=== PATIENT | female | born 1995 | race Caucasian/White ===

== ENCOUNTER 2017-08-18 21:23 | Inpatient (IN) ==
[~2017-08-18 21:23] MED LIST: Famotidine 20 MG/2 ML VIAL IVP PRN; Naloxone 0.4 MG/ML INJ IVP PRN; Ondansetron 4 MG/2 ML VIAL IVP PRN; Ringers Solution, Lactated 1,000 ML IVC SCH
--- NOTE | 2017-08-18 21:27 | OB/GYN History & Physical ---
Date of Encounter: 08/19/17 Time of Encounter: 20:55 Assessment and Plan (1) Oral thrush Current visit: Yes Status: Acute Patient shows white pseudomembranous plaques on examination. - Will treat with nystatin after delivery. (2) 39 weeks gestation of Current visit: Yes Status: Acute Speculum exam was positive for vaginal pooling. Nitrazine test was positive. - Patient will be admitted for labor and delivery. History of Present Illness Chief complaint: ROM HPI: Ms. So is a 22 year old female that is 39 6/7 gestation that presents for ROM. Patient says that she noticed vaginal fluid leaking around 6 pm today. She denies any vaginal bleeding. She admits to good movement. She says she has been having contractions since 6 pm that are 20-30 min. apart. She denies JARVIS, vision changes, chest pain, nausea, vomiting, fever, dysuria, and diarrhea. GBS: negative T. Pallidum: negative HepBSAB: Non-reactive HIV Ag/Ab: non-reactive Rubella Ab: positive VZV Ab: positive Past Med Surg Social Fam HX - Past Medical History Medical history: no medical history Psychiatric history: no psych history - Past Surgical History Surgical History: no surgical history - Social History Smoking Status: Never smoker Smokeless Tobacco Status: No Alcohol use: none Drug use: marijuana - Family History Mother Living Status: Still Living Hx Family Cardiac Disorders: No Hx Family Respiratory Disorders: No Hx Family Cancer: No Hx Family GI Disorders: No Hx Family Genitourinary Disorders: No Hx Family Endocrine Disorder: No Hx Family Musculoskeletal Disorders: No Hx Family Neuromuscular Disorders: No Hx Family Neurologic Disorders: No Hx Family HEENT Disorders: No Hx Family Autoimmune Disorders: No Hx Family Reproductive Disorders: No Hx Family Psychosocial Disorders: Yes (multiple including bipolar) Hx Family Medical Disorders: Yes (ovarian cysts) Obstetrical History - Pregnancies : 2 Para: 0 Term: 0 : 0 Ab's: 1 Livin Medications and Allergies Ferrous Sulfate [Iron] 325 mg PO DAILY 08/18/17 [History] 3 Allergy/AdvReac Type Severity Reaction Status Date / Time No Known Allergies Allergy Verified 08/18/17 21:05 Exam - Vital Signs Vital signs: BP: 132/63 Pulse: 66 - Constitutional Constitutional: well developed, well nourished, no acute distress, average body habitus - HEENT HEENT: Mucus Membranes Moist, Other (White plaques present on tongue. ) - Lungs Respiratory exam: CTAB - Cardiovascular Cardiovascular exam: RRR, +S1, +S2 - Abdomen Abdomen: Present: bowel sounds normal, gravid, non tender - Extremities Extremities exam: normal capillary refill, normal inspection, radial pulses palpable and symmetrical Deep Tendon Reflex Grade: 2+ Normal - Vagina Vagina: Present: discharge - Cervix Cervix: Present: discharge Dilation: 1 Effacement: 80 Station: -2 Results Result Diagrams: 08/18/17 22:00 All other labs normal. - VTE Reasons for not Prescribing Prophylaxis: Treatment not Indicated - Low risk for VTE - Attending Attestation I examined this patient and my medical decision-making was reviewed with the Resident Physician. I agree with the documented findings, disposition and treatment plan as described except to the extent set forth below.
[2017-08-18 22:17] LABS: Basophils % 0.3 %; Eosinophils # 0.1 K/mcL (0.0-0.6); Eosinophils % 0.4 %; Hematocrit 35.7 % (35.3-44.9); Hemoglobin 12.2 g/dL (11.5-15.4); Immature Granulocytes % 0.6 % (0-4); Lymphocytes # 3.3 K/mcL (0.6-4.6); Lymphocytes % 23.3 %; Mean Corpuscular HGB Conc 34.2 g/dL (31.6-35.5); Mean Corpuscular Hemoglobin 31.1 pg (28.0-33.3); Mean Corpuscular Volume 91.1 fL (83.0-100.0); Mean Platelet Volume 10.6 fL (9.4-12.4); Monocytes # 1.3 K/mcL (0.0-1.3); Monocytes % 9.1 %; Neutrophils # 9.3 K/mcL (1.6-8.9); Platelet Count 263 K/mcL (140-400); Red Blood Count 3.92 M/mcL (3.82-4.97); Red Cell Distribution Width 12.2 % (11.5-14.5); Segmented Neutrophils % 66.3 %
[2017-08-18 22:40] LABS: Amphetamine Screen,Urine Negative ng/mL (Cutoff=1000); Barbiturate Screen,Urine Negative ng/mL (Cutoff=200); Benzodiazepines Screen,Urine Negative ng/mL (Cutoff=200); Cannabinoid Screen,Urine Positive ng/mL (Cutoff = 50); Cocaine Screen,Urine Negative ng/mL (Cutoff= 300); Opiate Screen,Urine Negative ng/mL (Cutoff=300); Phencyclidine Screen,Urine Negative ng/mL (Cutoff=25)
[2017-08-19] MEDS ORDERED: *HR* Nalbuphine 20 MG/ML AMPUL ONE (00:09)
--- NOTE | 2017-08-19 00:12 | OB Labor Progress Note ---
Date of Encounter: 08/19/17 Time of Encounter: 00:09 Labor Progress Note - Subjective Subjective: Patient reports pain / and requesting pain medication - Cervix Cervix: 2/90/-2 - Heart Tones Heart Tones: 115 bpm moderate variability +15x15 accels variable noted. - [place]: 2-3 min apart - Interventions Interventions: SVE, forebag ruptured - Plan Plan: Continue labor management Will give nubain for pain at this time
[2017-08-19] MEDS: *HR* Nalbuphine 20 MG/ML AMPUL IVP PRN ×2 (00:15→06:08)
[2017-08-19] MEDS ORDERED: Oxytocin 20 units/ LR 1000 mL 20 UNIT/1,000 ML BAG IVC SCH ×3 (02:00→17:11)
--- NOTE | 2017-08-19 06:34 | OB Labor Progress Note ---
Date of Encounter: 08/19/17 Time of Encounter: 06:32 Labor Progress Note - Subjective Subjective: Patient resting in bed. Patient had Nubain for pain. - Cervix Cervix: 2/90/-2 - Heart Tones Heart Tones: 115 bpm moderate variability - [place]: irregular - Interventions Interventions: SVE, IUPC placed. Patient tolerated well. - Plan Plan: Continue labor management. Pitocin restarted.
--- NOTE | 2017-08-19 07:38 | Anesthesia Evaluation PreOp ---
Date of Encounter: 08/19/17 Time of Encounter: 07:33 - Past History Planned Operation: vaginal del, Cardiac History: Denies any Significant Hx Pulmonary History: Denies Any Significant HX CURAM DEVELOPER History: Denies Any Significant HX Other Medical History: Denies Any Significant HX Anesthesia History: No Prior Anesthetic Complications, Past Anesthesia : Yes (term) Alcohol Use: none Drug use: marijuana Medications and Allergies Ferrous Sulfate [Iron] 325 mg PO DAILY 08/18/17 [History] 3 Allergy/AdvReac Type Severity Reaction Status Date / Time No Known Allergies Allergy Verified 08/18/17 21:05 Anesthesia Results - Labs 08/18/17 22:00 Anesthesia Exam - HEENT Pupil (Motor): Pupils equal Mallampati: II Teeth: Normal Oral Opening: Greater than 3 - CURAM DEVELOPER LOC: Oriented CURAM DEVELOPER Motor: Normal RUE, Normal LUE, Normal RLE, Normal LLE, Normal Face CURAM DEVELOPER Sensory: Normal: RUE, LUE, RLE, LLE, Face - Cardiac Rhythm: Regular Murmur: None - Pulmonary Breath Sounds: bilateral Clear Respiratory Effort: Symmetrical Anesthesia Assess/Plan ASA Score: 2 Modified Marion Scale for Level of Consciousness: Cooperative, oriented, and tranquil Anesthetic Plan: General, Regional Monitoring Plan: Standard Monitors Recovery Plan: PACU
[2017-08-19] MEDS ORDERED: Epidural Premix (fent/bupiv) 110 ML EP ONE (08:56)
--- NOTE | 2017-08-19 09:24 | Anesthesia Procedures ---
Date of Encounter: 08/19/17 Time of Encounter: 09:02 Procedures: Anesthesia - Nerve Block Procedure Date: 08/19/17 Time: 09:22 Surgical Procedure: vaginal del. Checklist: Correct Patient Identifier, Correct procedure, History checked
--- NOTE | 2017-08-19 09:25 | Anesthesia Procedures ---
Date of Encounter: 08/19/17 Time of Encounter: 09:02 Procedures: Anesthesia - Epidural/Spinal Patient ID/Chart reviewed: Yes Patient examined: Yes OB Eval: Gestational age: term OB Eval: : 1 OB Eval: Dilated at (cm): 4 OB Eval: Contractions: Non-stressed pattern Consent Obtained: Yes Supplemental Oxygen: None/Room Air Site Prep: Aseptic Technique, Sterile prep and drape, 0.5% Chlorhexidine/Alcohol Patient position: upright Local Anesthetic: Lidocaine 1% Amount of Local Anesthetic used: 2 Touhy Needle Gauge: 18 Touhy Needle Depth (cm): 6 Catheter Depth at Skin (cm): 10 Test Dose (1.5% Lido + Epi): Volume given (mls): 3 Test Dose Result: Negative Loading Dose: Other: 12 from solution Loading Dose Administered: Thru Catheter Infusion Med: 0.125% Bupivacaine w/ 2 mcg/ml Fentanyl Infusion Rate (mls/hr): [address]: Tegaderm, Tape Interspace Used: L4-L5 Loss of Resistance (MACK): Yes (saline) Blood: No CSF: No Paresthesia: No Procedure: vss though out, FHR stable per RN;s
--- NOTE | 2017-08-19 11:14 | OB Labor Progress Note ---
Date of Encounter: 08/19/17 Time of Encounter: 11:12 Labor Progress Note - Subjective Subjective: Pt resting in bed, comfortable with epidural - Cervix Cervix: 2 per RN - Heart Tones Heart Tones: 135/moderate/-accels/variable decels CAT II - [place]ickam Housing [place]am Housing: IUPC 2-3 - Interventions Interventions: Repositioned to left side due to increase in variable decelerations on right side - Plan Plan: Continue pitocin per policy Discussed pt may need to have c/s if decelerations increase or heart rate does not return to baseline continue to attempt to have
[2017-08-19] MEDS ORDERED: 0.9 % Sodium Chloride 1,000 ML ONE (11:54)
[2017-08-19] MEDS ORDERED: Gentamicin 110 MG in 0.9 % Sodium Chloride 100 ML IVPB ONE (12:15)
[2017-08-19] MEDS ORDERED: Terbutaline 1 MG/ML VIAL SQ ONE ×2 (12:56)
[2017-08-19] MEDS ORDERED: Metoclopramide 10 MG/2 ML VIAL IVP ONE (12:57)
[2017-08-19] MEDS ORDERED: Lidocaine/EPI 1:200k 2% PF 20 ML VIAL ONE (13:01)
[2017-08-19] MEDS ORDERED: CeFAZolin Pre 2,000 MG/100 ML 2,000 MG/100 ML BAG IVPB ONE (13:14)
[2017-08-19] MEDS ORDERED: *HR* Morphine Sulfate/PF 5 MG/10 ML AMPUL ONE (13:24)
[2017-08-19] MEDS ORDERED: *HR* Phenylephrine 10 MG/ML VIAL ONE (13:25)
[2017-08-19] MEDS ORDERED: Ringers Solution, Lactated 1,000 ML ONE (13:26)
[2017-08-19] MEDS ORDERED: Ondansetron 4 MG/2 ML VIAL ONE (14:05)
[2017-08-19] MEDS ORDERED: *HR* Oxytocin 10 UNIT/ML VIAL IM ONE (14:09)
[2017-08-19] MEDS ORDERED: *HR* FentaNYL (PF) 100 MCG/2 ML VIAL ONE (14:18)
[2017-08-19] MEDS ORDERED: *HR* HYDROmorphone (PF) 1 MG/ML SYRINGE IVP PRN ×2 (14:33→17:42)
[2017-08-19] MEDS ORDERED: *HR* Promethazine 25 MG/ML VIAL IVP PRN (14:33)
[2017-08-19] MEDS ORDERED: Rho Immune Globulin 1,500 UNIT SYRINGE IM PRN (14:59)
[2017-08-19] MEDS ORDERED: Metoclopramide 10 MG/2 ML VIAL IVP PRN ×2 (14:59→17:11)
[2017-08-19] MEDS ORDERED: Sennosides 8.6 MG TABLET PO PRN ×2 (14:59→17:11)
[2017-08-19] MEDS ORDERED: *HR* OxyCODONE/APAP 5/325 TABLET PO PRN (14:59)
[2017-08-19] MEDS ORDERED: Acetaminophen 325 MG TABLET PO PRN ×2 (14:59→17:11)
[2017-08-19] MEDS ORDERED: Simethicone 80 MG TAB.CHEW PO PRN ×2 (14:59→17:11)
[2017-08-19] MEDS ORDERED: Ibuprofen 600 MG TABLET PO PRN (14:59)
--- NOTE | 2017-08-19 15:02 | OB/GYN Procedure Note ---
Section - Date of procedure: 08/19/17 Preop diagnosis: category 2 FHT tracing (Relative CPD) Post-op diagnosis: same (nuchal cord 2 tight) Procedure: primary low transverse Surgeon: Torsten Dalal Estimated blood loss (cc): 500 Teletypesetter Operator: Xena Steele Anesthesiologist: Valerie Rocha Acrobatic Dancer: Alejandro Carrillo Anesthesia Type: Epidural section complications: none Disposition: PACU Specimens: Placenta - (s) A Delivery Date: 08/19/17 Delivery Time: 14:06 Presentation: vertex Position: OP Gender: Female Viability: Viable (l) Pounds: 6 Ounces: 12 Gram Weight: 3.065 kg at 1 minute: 9 at 5 minutes: 10 Shoulder Dystocia: not encountered Placenta: complete extraction Cord: nuchal reduced (tight x 2) - Narrative Narrative: Patient was taken to the operating room. She was placed in supine position prepped and draped in usual manner. After satisfactory epidural anesthesia was achieved, appropriate timeout is obtained. The abdomen was entered through standard Maylard incision. The Elijah retractor was placed. Peritoneum overlying the lower uterine segment was incised in a U-shaped fashion. The uterine cavity was entered sharply extended laterally. Fluid was clear. With fundal pressure the head was delivered. Nuchal cord 2 that was tight was relieved. The infant was suctioned upon delivery of the head. The remainder of the infant was delivered, umbilical cord double clamped and cut, and infant handed to nursery staff for further evaluation. The placenta was removed as its pathology for analysis. Uterus was closed with a 0 Monocryl in a single layer. After assurance of hemostasis, the peritoneum was reapproximated with a 2-0 Vicryl. The retractor was removed. The abdomen was closed in a fashion using 0 Vicryl in the fascia and 3-0 Monocryl in the skin. Angelica dressing was applied. Patient did well and was taken to recovery room in satisfactory condition. Counts were correct.
[2017-08-19] MEDS ORDERED: Rho Immune Globulin 1,500 UNIT SYRINGE IM ONE (17:11)
[2017-08-19] MEDS ORDERED: Naloxone 0.4 MG/ML INJ IVP PRN (17:11)
[2017-08-19] MEDS ORDERED: Ondansetron 4 MG/2 ML VIAL IVP PRN (17:11)
[2017-08-19] MEDS ORDERED: *HR* HYDROmorphone (PF) 1 MG/ML SYRINGE ONE (17:36)
--- NOTE | 2017-08-19 17:41 | Anesthesia Evaluation Post Op ---
Date of Encounter: 08/19/17 Time of Encounter: 17:38 - Vital Signs Vital Signs: vss - Lungs Lungs: Clear Ascult./Percussion - Airway Airway: Non-obstructed - Cardiovascular Baseline Rhythm - Mental Status Mental Status: Asleep with brisk response to light stimulation - Pain Pain Scale used: Luther (Faces) (going to medicate with 1mg dilaudid IV) - Nausea Vomiting Nausea Vomiting: Not Present - Hydration Hydration: Ice chips - Discharge PostOp Status: Transfer Patient to floor
[2017-08-19] MEDS ORDERED: *HR* Morphine 2 MG/ML SYRINGE IVP PRN (17:42)
[2017-08-19] MEDS ORDERED: Ampicillin 2 GM in 0.9 % Sodium Chloride Mini Bag 100 ML IVPB SCH (18:00)
[2017-08-19] MEDS: Ibuprofen 600 MG TABLET PO PRN (20:23)
[2017-08-19] MEDS ORDERED: Gentamicin 80 MG in 0.9 % Sodium Chloride 100 ML IVPB SCH (21:00)
[2017-08-20] MEDS: Ibuprofen 600 MG TABLET PO PRN ×2 (04:42→18:24)
[2017-08-20 06:03] LABS: Lymphocytes % 19.4 %; Mean Corpuscular Hemoglobin 31.7 pg (28.0-33.3)
[2017-08-20 06:13] LABS: Basophils % 0.2 %; Eosinophils % 0.1 %; Hematocrit 27.9 % (35.3-44.9); Hemoglobin 9.5 g/dL (11.5-15.4); Immature Granulocytes % 0.7 % (0-4); Immature Platelets 4.3 % (1.1-6.1); Lymphocytes # 2.9 K/mcL (0.6-4.6); Mean Corpuscular HGB Conc 34.1 g/dL (31.6-35.5); Mean Platelet Volume 10.3 fL (9.4-12.4); Monocytes # 1.1 K/mcL (0.0-1.3); Monocytes % 7.4 %; Neutrophils # 10.6 K/mcL (1.6-8.9); Platelet Count 189 K/mcL (140-400); Red Cell Distribution Width 12.4 % (11.5-14.5); Segmented Neutrophils % 72.2 %
[2017-08-20] MEDS ORDERED: Prenatal Vit/FA 1 EACH TABLET PO SCH (09:00)
--- NOTE | 2017-08-20 10:35 | OB/GYN Progress Note ---
Date of Encounter: 08/20/17 Time of Encounter: 10:33 - Assessment and Plan (1) Status post primary low transverse section Current Visit: Yes Status: Acute Patient doing well. She is tolerating her diet, ambulating and voiding. She has not passed gas. She has been encouraged to continue being up and active. (2) 39 weeks gestation of Current Visit: Yes Status: Resolved Delivered Subjective - Subjective Principal diagnosis: [id number] Patient reports: appetite normal, voiding normally, pain well controlled, ambulating normally [place]: doing well Objective - Vital Signs Latest vital signs: Vital Signs Temp Pulse Resp BP Pulse Ox 08/20/17 04:30 98.2 F 70 16 118/58 99 08/19/17 23:10 98.5 F 60 16 118/58 98 08/19/17 20:02 98.4 F 69 16 137/56 95 08/19/17 19:00 97.8 F 82 16 133/74 08/19/17 18:00 99.0 F 90 16 136/67 08/19/17 17:30 98.0 F 80 16 120/68 08/19/17 17:00 98.4 F 71 16 122/68 96 Intake and Output 08/19/17 08/20/17 08/20/17 23:59 07:59 15:59 Intake Total 1500 / 1500 200 / 200 Output Total 400 / 400 400 / 400 Balance 1100 / 1100 -200 / -200 Intake: Oral 500 / 500 200 / 200 Other 1000 / 1000 Output: Catheter 400 / 400 400 / 400 Other: Weight 64.3 kg - Exam Lungs: bilateral: normal Chest: Normal S1, Normal S2 Extremities: Present: normal, edema (mild). Absent: tenderness Abdomen: Present: normal appearance, soft. Absent: distention, tenderness Incision: Present: dry, intact, dressed (LAINEY) - Labs Labs: Laboratory Results - last 24 hr 08/19/17 08/20/17 15:12 05:46 WBC 14.7 H RBC 3.00 L Hgb 9.5 L D Hct 27.9 L MCV 93.0 MCH 31.7 MCHC 34.1 RDW 12.4 Plt Count 189 MPV 10.3 Immature Gran % 0.7 Seg Neutrophils % 72.2 Lymphocytes % 19.4 Monocytes % 7.4 Eosinophils % 0.1 Basophils % 0.2 Neutrophils # 10.6 H Lymphocytes # 2.9 Monocytes # 1.1 Eosinophils # 0.0 Basophils # 0.0 Immature Plt Fraction 4.3 Baby's Blood Type A RH NEGATIVE Mother's Blood Type A RH NEGATIVE Rhogam Indicated NO - Allied health notes Allied health notes reviewed: nursing
[2017-08-20] MEDS: *HR* OxyCODONE/APAP 5/325 TABLET PO PRN ×3 (10:40→20:58)
[2017-08-20] MEDS: Prenatal Vit/FA 1 EACH TABLET PO SCH (10:41)
[2017-08-20] MEDS ORDERED: Lanolin 7 G OINT...G. TP PRN (21:04)
[2017-08-21] MEDS: *HR* OxyCODONE/APAP 5/325 TABLET PO PRN ×2 (05:35→09:41)
--- NOTE | 2017-08-21 08:04 | Discharge Summary ---
Date of Encounter: 08/21/17 Time of Encounter: 07:50 - Discharge Diagnosis (1) 39 weeks gestation of Priority: Primary Status: Resolved (2) Oral thrush Priority: Primary Status: Acute (3) anemia Priority: Primary Status: Acute - Discharge Medications Prescriptions: Ibuprofen [Motrin] 600 mg PO Q6HR PRN #60 tablet PRN Reason: Cramping OxyCODONE/APAP 5/325 [Percocet 5/325 MG] 1 each PO Q6HR PRN #20 tablet PRN Reason: Moderate pain 4-6 Docusate [Colace] 100 mg PO BID #30 capsule Ferrous Sulfate 325 mg PO DAILY #30 tablet Nystatin [Nystatin Suspension] 100,000 units PO QID 10 Days #120 ml Vit/FA 1 each PO DAILY #30 tablet Home Medications: Docusate [Colace] 100 mg PO BID #30 capsule 08/21/17 [Rx] Ferrous Sulfate 325 mg PO DAILY #30 tablet 08/21/17 [Rx] Ibuprofen [Motrin] 600 mg PO Q6HR PRN #60 tablet 08/21/17 [Rx] Nystatin [Nystatin Suspension] 100,000 units PO QID 10 Days #120 ml 08/21/17 [Rx ] OxyCODONE/APAP 5/325 [Percocet 5/325 MG] 1 each PO Q6HR PRN #20 tablet 08/21/17 [Rx] Vit/FA 1 each PO DAILY #30 tablet 08/21/17 [Rx] Allergies/Adverse Reactions: 3 Allergy/AdvReac Type Severity Reaction Status Date / Time No Known Allergies Allergy Verified 08/18/17 21:05 Data Procedures and tests throughout hospitalization: Laboratory Tests 08/18/17 08/18/17 08/19/17 22:00 22:00 15:12 WBC 14.0 H RBC 3.92 Hgb 12.2 Hct 35.7 MCV 91.1 MCH 31.1 MCHC 34.2 RDW 12.2 Plt Count 263 MPV 10.6 Immature Gran % 0.6 Seg Neutrophils % 66.3 Lymphocytes % 23.3 Monocytes % 9.1 Eosinophils % 0.4 Basophils % 0.3 Neutrophils # 9.3 H Lymphocytes # 3.3 Monocytes # 1.3 Eosinophils # 0.1 Basophils # 0.0 Immature Plt Fraction Urine Opiates Screen Negative Ur Barbiturates Screen Negative Ur Phencyclidine Scrn Negative Ur Amphetamines Screen Negative U Benzodiazepines Scrn Negative Urine Cocaine Screen Negative U Marijuana (THC) Screen Positive H Baby's Blood Type A RH NEGATIVE Mother's Blood Type A RH NEGATIVE Rhogam Indicated NO 08/20/17 05:46 WBC 14.7 H RBC 3.00 L Hgb 9.5 L D Hct 27.9 L MCV 93.0 MCH 31.7 MCHC 34.1 RDW 12.4 Plt Count 189 MPV 10.3 Immature Gran % 0.7 Seg Neutrophils % 72.2 Lymphocytes % 19.4 Monocytes % 7.4 Eosinophils % 0.1 Basophils % 0.2 Neutrophils # 10.6 H Lymphocytes # 2.9 Monocytes # 1.1 Eosinophils # 0.0 Basophils # 0.0 Immature Plt Fraction 4.3 Urine Opiates Screen Ur Barbiturates Screen Ur Phencyclidine Scrn Ur Amphetamines Screen U Benzodiazepines Scrn Urine Cocaine Screen U Marijuana (THC) Screen Baby's Blood Type Mother's Blood Type Rhogam Indicated Labs on day of discharge: Labs from last 24 hours 08/19/17 15:12 Rhogam Indicated NO Date of admission: 08/18/17 21:23 Primary care physician: PCP NONE Discharging clinician: Tom Ivey Anticipated date of discharge: 08/21/17 - Patient Status Disposition: Home, Self-Care Condition: Good Functional capacity at discharge: independent ambulation Overall status at discharge: patient is progressing back to baseline - Discharge Instructions Instructions: Anemia (GEN) Follow Up With: NONE,PCP [Primary Care Provider] - - Diet and Activity Activity: resume usual activities as tolerated Diet: regular diet Hospital Course Reason for admission: rupture of membranes Delivery: section Episiotomy: none Laceration: none Other procedures: none complications: none Discharge diagnosis: IUP at term delivered [place] baby: female Hospital course: Ms. So is a 22 year old female that was at 39 6/7 gestation that presented for ROM. Patient said that she noticed vaginal fluid leaking around 6 pm the day she presented. She denied any vaginal bleeding. She admitted to good movement. She says she has been having contractions that were 20-30 min. apart. Patient underwent a procedure due to category 2 FHT. Patient was taken to the operating room. She was placed in supine position prepped and draped in usual manner. After satisfactory epidural anesthesia was achieved, appropriate timeout is obtained. The abdomen was entered through standard Maylard incision. The Elijah retractor was placed. Peritoneum overlying the lower uterine segment was incised in a U-shaped fashion. The uterine cavity was entered sharply extended laterally. Fluid was clear. With fundal pressure the head was delivered. Nuchal cord 2 that was tight was relieved. The infant was suctioned upon delivery of the head. The remainder of the infant was delivered, umbilical cord double clamped and cut, and handed to nursery staff for further evaluation. The placenta was removed as its pathology for analysis. Uterus was closed with a 0 Monocryl in a single layer. After assurance of hemostasis, the peritoneum was reapproximated with a 2-0 Vicryl. The retractor was removed. The abdomen was closed in a fashion using 0 Vicryl in the fascia and 3-0 Monocryl in the skin. Angelica dressing was applied. Patient did well and was taken to recovery room in satisfactory condition. Counts were correct. When seen today, patient says that she has been doing well and is in good mood. She still complains of abdominal discomfort from the incision site, but says the pain has been improving and rates it as a 6/10 in scale. She denies any fever, chills, headaches, dizziness, or vision changes. She meets to occasional nausea but denies any vomiting. She is able to breast feed the baby and the baby is doing well. She has a follow-up appointment on 09/20 Dr. De La Paz. OARRS report checked. Time Attestation: Total time spent providing and/or coordinating discharge services: Time Spent: Less than 30 minutes - VTE Reasons for not Prescribing Prophylaxis: Treatment not Indicated - Low risk for VTE Documentation of Mechanical Device: Intermittent pneumatic compression device Exam - Constitutional Vitals: Temp Pulse Resp BP Pulse Ox 97.8 F 66 16 113/66 98 08/20/17 20:54 08/20/17 20:54 08/20/17 20:54 08/20/17 20:54 08/20/17 20:54 General appearance IM: A&O X 3, pleasant, no acute distress - Respiratory Respiratory exam: Present: CTAB - Cardiovascular Cardiovascular exam IM: Present: RRR, +S1, +S2 - GI/Abdominal GI/Abdominal exam IM: normal bowel sounds, soft, tenderness (minor diffuse tenderness to palpation) Incision: normal, dry, intact, dressed - Extremities Exam Extremities exam IM: Present: normal capillary refill, normal inspection, radial pulses palpable and symmetrical. Absent: pedal edema - Neurological Exam Neurological exam: CN II-XII intact, reflexes normal, no focal deficits
[2017-08-21] MEDS: Prenatal Vit/FA 1 EACH TABLET PO SCH (08:05)
[2017-08-21 08:14] VITALS: BP 114/69
== END 2017-08-21 13:20 | disposition home or self-care (01) | DRG 540 ==
LOC: 1NENULAB → 1NENUOBS 08-19 17:04
PROVIDERS: ADMIT Obstetrics & Gynecology; ATTEND Obstetrics & Gynecology

== ENCOUNTER 2021-04-10 08:07 | Inpatient (IN) ==
[2021-04-10] MEDS ORDERED: Famotidine 20 MG/2 ML VIAL IVP ONE (08:19)
[2021-04-10] MEDS ORDERED: Metoclopramide 10 MG/2 ML VIAL IVP ONE (08:19)
[2021-04-10] MEDS ORDERED: CeFAZolin 2,000 MG/50 ML BAG IVPB ONE (08:19)
[2021-04-10] MEDS: Ringers Solution, Lactated 1,000 ML IVC SCH ×2 (08:47→09:32)
[2021-04-10] MEDS ORDERED: *HR* FentaNYL (PF) 100 MCG/2 ML VIAL ONE (08:52)
[2021-04-10] MEDS ORDERED: *HR* Morphine Sulfate/PF 10 MG/10 ML AMPUL ONE (08:52)
[2021-04-10 09:11] LABS: Basophils # 0.1 K/mcL (0.0-0.2); Basophils % 0.3 %; Eosinophils # 0.1 K/mcL (0.0-0.6); Eosinophils % 0.7 %; Hematocrit 35.8 % (35.3-44.9); Hemoglobin 12.5 g/dL (11.5-15.4); Immature Granulocytes % 0.8 % (0-4); Lymphocytes # 2.9 K/mcL (0.6-4.6); Mean Corpuscular HGB Conc 34.9 g/dL (31.6-35.5); Mean Corpuscular Volume 91.6 fL (83.0-100.0); Mean Platelet Volume 10.9 fL (9.4-12.4); Monocytes % 6.8 %; Neutrophils # 10.3 K/mcL (1.6-8.9); Platelet Count 291 K/mcL (140-400); Red Blood Count 3.91 M/mcL (3.82-4.97); Red Cell Distribution Width 12.7 % (11.5-14.5); Segmented Neutrophils % 71.4 %; White Blood Count 14.5 K/mcL (4.3-11.1)
[2021-04-10] MEDS ORDERED: Ondansetron 4 MG/2 ML VIAL ONE (10:55)
[2021-04-10] MEDS ORDERED: *HR* Promethazine 25 MG/ML VIAL ONE (10:56)
[2021-04-10] MEDS ORDERED: *HR* Phenylephrine 10 MG/ML VIAL ONE (11:08)
[2021-04-10] MEDS ORDERED: *HR* Midazolam HCl 2 MG/2 ML VIAL ONE ×2 (11:15→11:57)
[2021-04-10] MEDS ORDERED: *HR* FentaNYL (PF) 100 MCG/2 ML VIAL IVP PRN (11:21)
[2021-04-10] MEDS ORDERED: *HR* Meperidine 25 MG/ML SYRINGE IVP PRN (11:21)
[2021-04-10] MEDS ORDERED: Promethazine 6.25 MG in Water for inj. (sterile) 20 ML IVPB PRN (11:21)
[2021-04-10] MEDS ORDERED: Naloxone 0.4 MG/ML INJ IVP PRN (11:21)
[2021-04-10] MEDS ORDERED: *HR* HYDROcodone/Acet 10/325 mg TABLET PO PRN (11:21)
[2021-04-10] MEDS ORDERED: Acetaminophen IV 1,000 MG/100 ML BAG IVPB ONE (11:50)
[2021-04-10 11:53] LABS: Amphetamine Screen,Urine Negative ng/mL (Cutoff=1000); Barbiturate Screen,Urine Negative ng/mL (Cutoff=200); Benzodiazepines Screen,Urine Negative ng/mL (Cutoff=200); Cannabinoid Screen,Urine Positive ng/mL (Cutoff = 50); Cocaine Screen,Urine Negative ng/mL (Cutoff= 300); Opiate Screen,Urine Negative ng/mL (Cutoff=300); Phencyclidine Screen,Urine Negative ng/mL (Cutoff=25)
[2021-04-10] MEDS ORDERED: Simethicone 80 MG TAB.CHEW PO PRN (14:34)
[2021-04-10] MEDS ORDERED: Oxytocin 20 units/ LR 1000 mL 20 UNIT/1,000 ML BAG IVC SCH (14:34)
[2021-04-10] MEDS ORDERED: Rho Immune Globulin 1,500 UNIT SYRINGE IM ONE (14:34)
[2021-04-10] MEDS ORDERED: Metoclopramide 10 MG/2 ML VIAL IVP PRN (14:34)
[2021-04-10] MEDS ORDERED: Ringers Solution, Lactated 1,000 ML IVC SCH (14:34)
[2021-04-10] MEDS ORDERED: Ondansetron 4 MG/2 ML VIAL IVP PRN (14:34)
[2021-04-10] MEDS ORDERED: Sennosides 8.6 MG TABLET PO PRN (14:34)
[2021-04-10] MEDS: Gabapentin 400 MG CAPSULE PO SCH ×2 (15:22→20:11)
[2021-04-10] MEDS: Ibuprofen 600 MG TABLET PO PRN (16:44)
[2021-04-11] MEDS: Ibuprofen 600 MG TABLET PO PRN ×2 (00:37→08:48)
[2021-04-11] MEDS: *HR* OxyCODONE/APAP 5/325 TABLET PO PRN ×3 (04:28→15:50)
[2021-04-11 05:01] LABS: Basophils % 0.3 %; Eosinophils # 0.1 K/mcL (0.0-0.6); Eosinophils % 0.8 %; Hematocrit 27.8 % (35.3-44.9); Hemoglobin 9.3 g/dL (11.5-15.4); Immature Granulocytes % 0.5 % (0-4); Lymphocytes # 2.6 K/mcL (0.6-4.6); Lymphocytes % 18.5 %; Mean Corpuscular HGB Conc 33.5 g/dL (31.6-35.5); Mean Corpuscular Hemoglobin 31.5 pg (28.0-33.3); Mean Corpuscular Volume 94.2 fL (83.0-100.0); Mean Platelet Volume 10.6 fL (9.4-12.4); Monocytes # 1.1 K/mcL (0.0-1.3); Monocytes % 7.5 %; Neutrophils # 10.3 K/mcL (1.6-8.9); Platelet Count 197 K/mcL (140-400); Red Blood Count 2.95 M/mcL (3.82-4.97); Red Cell Distribution Width 12.7 % (11.5-14.5); Segmented Neutrophils % 72.4 %; White Blood Count 14.2 K/mcL (4.3-11.1)
[2021-04-11 07:34] VITALS: BP 118/46
[2021-04-11] MEDS: Gabapentin 400 MG CAPSULE PO SCH ×2 (08:49→15:50)
[2021-04-11] MEDS ORDERED: Prenatal Vit/FA 1 EACH TABLET PO SCH (09:00)
== END 2021-04-11 16:30 | disposition home or self-care (01) | DRG 539 ==
LOC: 1NENULAB 08:07 → 1NENUOBS 14:26
PROVIDERS: ADMIT Student in an Organized Health Care Education/Training Program; ATTEND Student in an Organized Health Care Education/Training Program